=== PATIENT | male | born 1995 | race Caucasian/White ===

== ENCOUNTER 2019-02-13 17:12 | Inpatient (IN) | payer OTHER ==
[~2019-02-13] VITALS: Ht 185.4 cm; Wt 82.7 kg
[2019-02-13 18:04] LABS: BASO # 0.1 10^3/uL (0.0-0.2); BASO % 0.4 % (0.0-1.0); EOS # 0.2 10^3/uL (0.0-0.50); EOS % 1.1 % (0.0-3.0); HEMATOCRIT 46.8 % (42.0-52.0); HEMOGLOBIN 16.2 g/dl (13.5-17.5); LYMPH # 3.1 10^3/uL (1.5-6.5); LYMPH % 21.1 % (24.0-44.0); MEAN CORPUSCULAR HEMOGLOBIN 31.2 pg (27.0-33.0); MEAN CORPUSCULAR HGB CONC 34.6 g/dl (32.0-36.5); MEAN CORPUSCULAR VOLUME 90.2 fl (80.0-96.0); MONO # 1.3 10^3/uL (0.0-0.8); MONO % 8.8 % (0.0-5.0); NEUTROPHILS # 10.1 10^3/uL (1.8-7.7); NEUTROPHILS % 68.2 % (36.0-66.0); PLATELET COUNT, AUTOMATED 254 10^3/uL (150-450); RED BLOOD COUNT 5.19 10^6/uL (4.30-6.10); WHITE BLOOD COUNT 14.9 10^3/uL (4.0-10.0)
[2019-02-13] MEDS ORDERED: NS 1,000 ML IV ONE (18:30)
[2019-02-13 18:32] LABS: ALBUMIN 4.3 GM/DL (3.2-5.2); ALT/SGPT 36 U/L (12-78); BILIRUBIN,DIRECT 0.3 MG/DL (0.0-0.2); BLOOD UREA NITROGEN 9 MG/DL (7-18); CALCIUM LEVEL 9.4 MG/DL (8.5-10.1); CARBON DIOXIDE LEVEL 31 MEQ/L (21-32); CHLORIDE LEVEL 103 MEQ/L (98-107); CREATININE FOR GFR 1.05 MG/DL (0.70-1.30); GLOMERULAR FILTRATION RATE > 60.0 (>60); GLUCOSE, FASTING 90 MG/DL (70-100); LIPASE 116 U/L (73-393); POTASSIUM SERUM 3.9 MEQ/L (3.5-5.1); SODIUM LEVEL 140 MEQ/L (136-145); TOTAL PROTEIN 8.2 GM/DL (6.4-8.2)
[2019-02-13] MEDS ORDERED: ISOVUE-370 76% 100ML VIAL (Q9967) As Ordered ONE (18:39)
--- NOTE | 2019-02-13 19:35 | REPVR ---
EXAM: CT Abdomen and Pelvis With Contrast EXAM DATE/TIME: 02/13/2019 6:30 PM CLINICAL HISTORY: 23 years old, male; Abdominal pain; Generalized; Additional info: R/O appy TECHNIQUE: Imaging protocol: Axial computed tomography images of the abdomen and pelvis with intravenous contrast. Coronal and sagittal reformatted images were created and reviewed. Radiation optimization: All CT scans at this facility use at least one of these dose optimization techniques: automated exposure control; mA and/or kV adjustment per patient size (includes targeted exams where dose is matched to clinical indication); or iterative reconstruction. Contrast material: ISOVUE 370; Contrast volume: 100 ml; Contrast route: IV; COMPARISON: No relevant prior studies available. FINDINGS: ABDOMEN: Liver: Normal. No mass. Gallbladder and bile ducts: Normal. No calcified stones. No ductal dilation. Pancreas: Normal. No ductal dilation. Spleen: Normal. No splenomegaly. 1.5 cm accessory spleen contiguous with the inferior margin of the spleen. Adrenals: Normal. No mass. Kidneys and ureters: Normal. No hydronephrosis. Stomach and bowel: Normal. No obstruction. No mucosal thickening. Appendix: There is mild periappendiceal inflammation. PELVIS: Bladder: Unremarkable as visualized. Reproductive: Unremarkable as visualized. ABDOMEN and PELVIS: Intraperitoneal space: Trace amount of free fluid in the posterior cul-de-sac. Bones/joints: No acute fracture. No dislocation. Soft tissues: Unremarkable. Vasculature: Normal. No abdominal aortic aneurysm. Lymph nodes: Scattered lymph nodes measuring less than a centimeter noted at the base of the cecum and in the mesentery. IMPRESSION: 1. Acute appendicitis. No abscess. No perforation. Electronically signed by: Tracy Bazan On 02/13/2019 19:35:22 PM
[2019-02-13] MEDS ORDERED: PIPERACILLIN/TAZOBACTAM SOD 3.375 GM in D5W MINI-BAG PLUS 50 ML IV ONE (19:45)
[2019-02-13] MEDS ORDERED: SENN1TAB8 PO (19:57)
[2019-02-13] MEDS ORDERED: ROCURONIUM BROMIDE 50 MG/5 ML VIAL As Ordered ONE (20:23)
[2019-02-13] MEDS ORDERED: PROPOFOL 200 MG/20 ML VIAL As Ordered ONE (20:23)
[2019-02-13] MEDS ORDERED: LIDOCAINE 2% INJ 100 MG/5 ML SDV (FOR ANES.) As Ordered ONE (20:23)
[2019-02-13] MEDS ORDERED: fentaNYL 100 MCG/2 ML INJECTION (J3010) As Ordered ONE (20:24)
[2019-02-13] MEDS ORDERED: MIDAZOLAM INJ 2 MG/2 ML VIAL (J2250) As Ordered ONE (20:24)
[2019-02-13] MEDS ORDERED: dexameTHASONE 4 MG/ML 1ML VIAL (J1100) As Ordered ONE (20:24)
[2019-02-13] MEDS ORDERED: ONDANSETRON 4MG/2ML VIAL (J2405) As Ordered ONE (20:24)
[2019-02-13] MEDS ORDERED: BUPIVACAINE/EPIN 0.25% 30 ML VIAL As Ordered ONE (20:27)
[2019-02-13] MEDS ORDERED: HYDROmorphone HCL 2 MG/ML 1ML VIAL (J1170) As Ordered ONE (21:01)
[2019-02-13] MEDS ORDERED: SUGAMMADEX SODIUM 500 MG/5 ML VIAL (BRIDION) As Ordered ONE (21:13)
[2019-02-13] MEDS ORDERED: KETOROLAC 60 MG/2 ML VIAL (J1885) As Ordered ONE (21:14)
[2019-02-13] MEDS ORDERED: ESMOLOL INJ 100MG/10ML VIAL As Ordered ONE (21:25)
[2019-02-13] MEDS ORDERED: PHENYLephrine HCL 500 MCG/5 ML (100MCG/ML) SYRINGE (J2370) As Ordered ONE (21:40)
[2019-02-13] MEDS ORDERED: NS 1,000 ML IV SCH (21:58)
[2019-02-13] MEDS ORDERED: ONDANSETRON 4MG/2ML VIAL (J2405) IV PRN (22:00)
[2019-02-13] MEDS ORDERED: PROMETHAZINE INJ 25 MG/ML VIAL (J2550) IV PRN ×2 (22:00→22:45)
[2019-02-13] MEDS ORDERED: MORPHINE 4 MG/ML 1ML VIAL/SYRINGE (J2270) IV PRN (22:00)
[2019-02-13] MEDS ORDERED: METOCLOPRAMIDE INJ 10MG/2ML VIAL (J2765) IV PRN ×2 (22:00→22:45)
[2019-02-13] MEDS ORDERED: NORCO, ANEXSIA 5/325MG TABLET (HYDROcodone/ACETAMINOPHEN) PO PRN (22:00)
[2019-02-13] MEDS ORDERED: METOCLOPRAMIDE INJ 10MG/2ML VIAL (J2765) As Ordered ONE (22:37)
[2019-02-13] MEDS ORDERED: LR 1,000 ML IV SCH (22:45)
[2019-02-13] MEDS ORDERED: oxyCODONE 5MG TAB PO PRN (22:45)
[2019-02-13] MEDS ORDERED: fentaNYL 100 MCG/2 ML INJECTION (J3010) IV PRN (22:45)
[2019-02-13] MEDS ORDERED: oxyCODONE 5MG TAB As Ordered ONE (22:50)
[2019-02-14] VITALS (9 sets, daily range): BP systolic 116–147; BP diastolic 55–69
[2019-02-14] MEDS: PIPERACILLIN/TAZOBACTAM SOD 3.375 GM in D5W MINI-BAG PLUS 50 ML IV SCH ×2 (02:36→08:24)
[2019-02-14] MEDS: KETOROLAC 30 MG/ML VIAL (J1885) IV PRN ×2 (05:49→14:31)
[2019-02-14] MEDS ORDERED: CHLORASEPTIC SPRAY MT PRN (08:30)
[2019-02-14] MEDS ORDERED: CEPACOL LOZENGE PO PRN (08:30)
[2019-02-14] MEDS ORDERED: PANTOPRAZOLE 40MG TAB (PROTONIX) PO SCH (09:00)
--- NOTE | 2019-02-16 07:44 | RO ---
DATE OF PROCEDURE: 02/13/2019 PREOPERATIVE DIAGNOSIS: Acute appendicitis. POSTOPERATIVE DIAGNOSIS: Acute appendicitis. PROCEDURE: Laparoscopic appendectomy. SURGEON: Bryon Crane Jr., MD TUBER HELPER: ANESTHESIA: General endotracheal anesthesia. ESTIMATED BLOOD LOSS: Minimal. FLUIDS: Crystalloid. BRIEF PROCEDURE SUMMARY: The patient was brought to the operating room and was given general anesthesia. After adequate anesthesia and preoperative antibiotics were given the patient was prepped and draped in the usual sterile fashion. Next, a supraumbilical incision was made with skin knife. Blunt dissection was carried down to fascia. Fascia was entered with a Veress needle and insufflated to 15 mm of pressure. A dilating 10 mm trocar was placed at this time and under direct visualization suprapubic and left lower quadrant 5 mm trocars were placed. The appendix was actually quite high in the right upper abdomen and the patient had somewhat of a cecal bascule that rotated the cecum up. In any case, after mobilizing the omentum off the right colon and the cecum in this area, I was able to identify the appendix quite nicely. The tip of the appendix was inflamed with some fibrinous exudate and the mesentery was taken with harmonic scalpel all the way to the base of the appendix/cecal wall. The appendix was transected at the level of the cecum with a MELIDA stapler, placed in an EndoCatch bag and brought out through the umbilicus. #0 Vicryl was used to close the fascia at the umbilicus after the right upper quadrant was copiously irrigated until clear and all trocars removed under direct visualization. All incisions were closed with #4-0 Vicryl. Steri-Strips and dry sterile dressing was applied. The patient was awakened, extubated, brought to the recovery room awake, alert, and hemodynamically stable. Sponge and needle counts were correct times two.
== END 2019-02-14 14:45 | disposition home or self-care (01) | DRG 343 ==
LOC: M ED 17:12 → M SDC 20:00 → M ED INP 21:58 → M PED 23:55
PROVIDERS: ADMIT Surgery; ATTEND Surgery
PROC: 0DTJ4ZZ Resection of Appendix, Percutaneous Endoscopic Approach (ICD-10-PCS; principal; 2019-02-13 20:10)
DX: K35.80 Unspecified acute appendicitis (principal)

== ENCOUNTER 2025-05-14 09:20 | Emergency (ER) | payer BC, OTHER ==
[~2025-05-14] VITALS: Ht 185.4 cm; Wt 98.4 kg
[~2025-05-14 09:20] MED LIST: SENN-186 PO
[2025-05-14 09:22] VITALS: BP 159/81; O2SAT 97
[2025-05-14] MEDS ORDERED: ACET-683 PO (09:30)
[2025-05-14] MEDS: KETOROLAC 60 MG/2 ML VIAL IM ONE (10:37)
[2025-05-14 11:11] VITALS: TEMP 97.2
== END 2025-05-14 11:30 | disposition home or self-care (01) ==
LOC: M ED 09:20
DX: S80.912A Unspecified superficial injury of left knee, initial encounter (principal); Y92.019 Unspecified place in single-family (private) house as the place of occurrence of the external cause; Y93.9 Activity, unspecified; Y99.9 Unspecified external cause status; W01.0XXA Fall on same level from slipping, tripping and stumbling without subsequent striking against object, initial encounter; Z79.1 Long term (current) use of non-steroidal anti-inflammatories (NSAID)
CPT/HCPCS: 73564; 96372; 99283; J1885

== ENCOUNTER → 2025-06-24 | Outpatient (CLI) | payer BC, OTHER ==
[~2025-06-24] MED LIST changes: +ACET-683 PO
== END ==
LOC: M PLAIMG 06:37
PROVIDERS: ATTEND Physician Assistant
DX: M25.562 Pain in left knee (principal)

== ENCOUNTER 2025-07-08 13:45 | Outpatient (RCR) | payer BC, OTHER | END 2025-07-09 | LOC: M PT 13:45 | PROVIDERS: ATTEND Physician Assistant | DX: M25.562 Pain in left knee (principal) ==

== ENCOUNTER 2025-07-20 09:26 | Outpatient (RCR) | payer OTHER | END 2025-08-08 | LOC: M PT 09:26 | PROVIDERS: ATTEND Physician Assistant | DX: M25.562 Pain in left knee (principal) ==